=== PATIENT | male | born 1940 | race Caucasian/White ===

== ENCOUNTER 2018-05-20 08:38 | Observation (INO) | payer BC, MEDICARE ==
[2018-05-20] MEDS ORDERED: NORMAL SALINE 1,000 ML IV PRN (09:05)
[2018-05-20] MEDS ORDERED: ALPRAZolam 0.25 MG TABLET PO PRN (10:25)
[2018-05-20] MEDS ORDERED: oxyCODONE HCL/ACETAMINOPHEN 1 TAB TABLET PO PRN (10:25)
--- NOTE | 2018-05-20 11:08 | HP ---
Chief Complaint - Chief Complaint Date of Service: 05/20/18 Time of Service: 09:00 Chief Complaint: Lightheaded History of Present Illness: The patient presented to my office yesterday with complaints of lightheadedness that started less than 1 week ago. The patient has Crohn's disease and was recently found to have bacterial overgrowth and was started on Flagyl 250 mg by mouth twice a day with plans to treat for 14 days. The patient started treatment on 05/13/2018. The following morning, on 05/12/2018 , the patient states he started noticing a generalized feeling of being unwell with associated lightheadedness. He also admits to decreased appetite. The patient states that as long as he is laying in bed he has no symptoms whatsoever but with any activity at all even just going from the sitting to standing position he becomes extremely lightheaded and says that he has nearly passed out multiple times. The patient also admits to having associated shortness of breath that has progressively worsened along with a lightheadedness over the past week. The patient thought his symptoms were secondary to the Flagyl so he stopped taking the Flagyl on 05/16/2018, but his symptoms did not improve and he actually states that they continue to progressively worsen so he figured his symptoms were not due to the Flagyl. I saw the patient in my office yesterday 05/19/2018 and at that time his lungs were clear but his heart rhythm was markedly irregular. He was sent for laboratory testing and EKG and returned to my office this morning for follow- up. This morning, the patient states that he continues to feel miserable and severely lightheaded to the point that he is nearly passing out. I am concerned that the patient's symptoms are secondary to a cardiac etiology so I will admit the patient to outpatient observation for monitoring on telemetry. Medical History (Last Reviewed 05/20/18 @ 09:59 by Duong Craft RN) Alcohol abuse Onset Date: ~05/15/14 Anemia Onset Date: Unknown Anxiety Onset Date: ~07/10/11 BPH (benign prostatic hyperplasia) Onset Date: ~07/10/11 CKD (chronic kidney disease) Onset Date: Unknown COPD (chronic obstructive pulmonary disease) Onset Date: ~07/10/11 Cholelithiasis Onset Date: Unknown Chronic bilateral low back pain with sciatica Onset Date: ~03/15/17 Crohn's colitis Onset Date: ~03/15/17 Degenerative joint disease of left hip Onset Date: ~03/15/17 Depression Onset Date: Unknown Elbow pain Onset Date: Unknown Essential hypertension Onset Date: Unknown GERD (gastroesophageal reflux disease) Onset Date: ~07/10/11 Hypomagnesemia Onset Date: Unknown Inflammatory bowel disease Onset Date: Unknown Lactose intolerance Onset Date: Unknown BELA (obstructive sleep apnea) Onset Date: ~03/15/17 Osteoarthritis Onset Date: Unknown Pain due to internal orthopedic prosthetic device Onset Date: ~05/31/17 Peripheral neuropathy Onset Date: ~03/15/17 Primary osteoarthritis involving multiple joints Onset Date: ~03/15/17 Prostate cancer Onset Date: ~10/30/13 Psoriasis Onset Date: Unknown Vitamin B12 deficiency (dietary) anemia Onset Date: Unknown Echocardiogram abnormal Onset Date: ~11/03/13 Surgical History: Surgical History (Last Reviewed 05/20/18 @ 09:59 by Duong Craft RN) Colonoscopy planned Onset Date: ~2015 Esophageal dilatation Onset Date: ~02/07/14 H/O adenoidectomy Onset Date: ~1941 H/O cystoscopy Onset Date: ~2011 H/O hernia repair Onset Date: ~1998 H/O prostatectomy Onset Date: ~2002 H/O total hip arthroplasty Onset Date: ~08/11/16 History of bowel resection Onset Date: ~12/2015 History of cardiac cath Onset Date: ~05/29/08 History of cholecystectomy Onset Date: ~10/14/04 History of esophagogastroduodenoscopy (EGD) Onset Date: ~2013 History of penile implant Onset Date: ~2002 Hx of cataract surgery Onset Date: ~2006 S/P surgical manipulation of ankle joint Onset Date: ~09/18/99 Status post surgical removal of malignant neoplasm of skin Onset Date: ~ Tonsillectomy planned Onset Date: ~1941 Vasectomy planned Onset Date: ~1973 Family History: Family History (Last Reviewed 05/20/18 @ 09:59 by Duong Craft RN) Brother Diabetes Cancer Aortic valve replaced Father Hypertension Carotid atherosclerosis Mother Heart problem Diverticulitis Gall bladder disease Uncle No problems noted. Social History: Patient Lives/Resources Home Utilized Occupation Retired Preferred Language Turkmen Do you have any zoroastrianism or Yes: Sabianist cultural preference? Smoking Status Former smoker Have you smoked in the past 12 No months Do you dip or chew tobacco No Abuse History No History of abuse Psych History Hx of Anxiety Review Of Systems (GEN) - Review of Systems Generalized/Overall Review: Present: Weakness, Fatigue Respiratory: Present: Shortness of Breath Cardiac: Present: Syncope - pre-syncope. Absent: Chest Pain, Palpitations Musculoskeletal: Present: Joint Pain - chronic, Back Pain - chronic Misc: All systems neg except as marked Immunizations: IMMUNIZATION HX Immunizations Up to Date Yes History of Influenza Vaccine No Hx Pneumococcal Vaccination No Allergies/Adverse Reactions: Allergies Allergy/AdvReac Type Severity Reaction Status Date / Time azathioprine [From Imuran] AdvReac Mild Diarrhea Verified 05/20/18 09:31 azathioprine sodium AdvReac Mild Diarrhea Verified 05/20/18 09:31 [From Imuran] levofloxacin [From Levaquin] AdvReac Mild Diarrhea Verified 05/20/18 09:31 mesalamine [From Pentasa] AdvReac Mild Diarrhea Verified 05/20/18 09:31 adhesive tape AdvReac Unknown RASH Verified 05/20/18 09:31 rifaximin [From Xifaxan] AdvReac Unknown Diarrhea Verified 05/20/18 09:31 Home Medications: HOME MEDICATIONS Multivitamins [Multivitamin Jackie] 1 cap PO DAILY 08/03/16 [Last Taken Unknown] Vedolizumab [Entyvio] 300 mg IV Q56D 08/03/16 [Last Taken 03/31/18] Gabapentin 300 mg PO TID 08/11/16 [Last Taken Unknown] acetaminophen ER 650 mg tablet,extended release 650 mg PO BID tab 03/09/18 [ Last Taken Unknown] alprazolam 0.25 mg tablet 0.125 mg PO TID PRN tab 03/09/18 [Last Taken Unknown] aspirin 81 mg tablet,delayed release 81 mg PO DAILY 03/09/18 [Last Taken Unknown ] calcium carbonate-vitamin D3 600 mg (1,500 mg)-400 unit capsule 600 mg PO DAILY cap 03/09/18 [Last Taken Unknown] lactobacillus combination no.4 3 billion cell capsule 1 cap PO DAILY 03/09/18 [ Last Taken Unknown] omeprazole 40 mg capsule,delayed release 40 mg PO DAILY #30 cap 03/21/18 [Last Taken Unknown] lisinopril 20 mg tablet 20 mg PO DAILY #90 tab 03/28/18 [Last Taken Unknown] amlodipine 5 mg tablet 5 mg PO DAILY #90 tab 04/12/18 [Last Taken Unknown] Cholestyramine (with Sugar) [Questran Packet] 4 g PO BID 05/20/18 [Last Taken Unknown] Umeclidinium [place] [Incruse Ellipta] 62.5 mcg IH DAILY 05/20/18 [Last Taken Unknown] albuterol sulfate 2.5 mg/3 mL (0.083 %) solution for nebulization 2.5 mg IH BID ml 05/20/18 [Last Taken Unknown] bupropion HCl XL 300 mg 24 hr tablet, extended release 300 mg PO DAILY tab [Last Taken Unknown] iron,carbonyl 65 mg-vitamin C 125 mg tablet,delayed release 1 tab PO DAILY 05/20 [Last Taken Unknown] oxyCODONE HCL/ACETAMINOPHEN [Oxycodone-Acetaminophen 5-325] 1 tab PO Q4H PRN [Last Taken Unknown] oxybutynin chloride ER 10 mg tablet,extended release 24 hr 10 mg PO DAILY [Last Taken Unknown] Exam - Exam Vital Signs: Vital Signs - Last Taken Temp 37.2 C 05/20/18 09:48 Pulse 66 05/20/18 10:18 Resp 16 05/20/18 09:48 BP 158/79 H 05/20/18 09:48 Pulse Ox 98 05/20/18 09:48 Constitutional: Present: Alert, Oriented x3, Cooperative, Acute distress - Appears acutely ill and it looks like he does not feel well ENT Exam: Present: hearing grossly normal, moist mucous membranes Eye Exam: bilateral eye: normal inspection, PERRL, EOMI Respiratory: Present: lungs clear, normal breath sounds, no respiratory distress , no accessory muscle use, decreased breath sounds Cardiovascular/Chest: Present: other - Markedly irregular rhythm Abdomen: Present: soft, other - chronic distension Skin Exam: Present: normal color, warm/dry Neurologic: Present: no motor/sensory deficits, alert, normal mood/affect, oriented x 3 Appearance: Present: appropriate appearance, appropriate insight, neat, no memory impairment Eye contact: Present: cooperative, good eye contact, normal speech Thoughts: Present: normal thought pattern, no apparent hallucination Assessment/Plan - Narrative Narrative: I am concerned the patient's presentation is secondary to a cardiac etiology given his markedly abnormal heart rhythm. Work-up started yesterday as an outpatient is essentially unremarkable including CXR, cardiac enzymes, d-dimer. The patient will be admitted to outpatient observation status for further evaluation and monitor on telemetry. - Assessment/Plan (1) Irregular heart rhythm Problem: Acute (2) Pre-syncope Problem: Acute (3) Lightheadedness Problem: Acute
[2018-05-20] MEDS ORDERED: ONDANSETRON HCL/PF 2 MG/ML VIAL IV STA (12:29)
--- NOTE | 2018-05-20 12:30 | DS ---
Transfer Discharge Summary - Diagnosis(s)/Problems (1) Irregular heart rhythm Problem: Acute (2) Pre-syncope Problem: Acute (3) Lightheadedness Problem: Acute (4) Symptomatic bradycardia Problem: Acute - Course Description of Stay: ADMISSION DATE: 05/20/2018 TRANSFER DISCHARGE DATE: 05/20/2018 ADMISSION HPI: The patient presented to my office yesterday with complaints of lightheadedness that started less than 1 week ago. The patient has Crohn's disease and was recently found to have bacterial overgrowth and was started on Flagyl 250 mg by mouth twice a day with plans to treat for 14 days. The patient started treatment on 05/13/2018. The following morning, on 05/12/2018 , the patient states he started noticing a generalized feeling of being unwell with associated lightheadedness. He also admits to decreased appetite. The patient states that as long as he is laying in bed he has no symptoms whatsoever but with any activity at all even just going from the sitting to standing position he becomes extremely lightheaded and says that he has nearly passed out multiple times. The patient also admits to having associated shortness of breath that has progressively worsened along with a lightheadedness over the past week. The patient thought his symptoms were secondary to the Flagyl so he stopped taking the Flagyl on 05/16/2018, but his symptoms did not improve and he actually states that they continue to progressively worsen so he figured his symptoms were not due to the Flagyl. I saw the patient in my office yesterday 05/19/2018 and at that time his lungs were clear but his heart rhythm was markedly irregular. He was sent for laboratory testing and EKG and returned to my office this morning for follow- up. This morning, the patient states that he continues to feel miserable and severely lightheaded to the point that he is nearly passing out. I am concerned that the patient's symptoms are secondary to a cardiac etiology so I will admit the patient to outpatient observation for monitoring on telemetry. HOSPITAL COURSE: The patient was admitted to the hospital for lightheadedness and presyncope. The patient was monitored on telemetry and found to have an erratic labile heart rate and rhythm with multiple pauses and the patient was symptomatic. He also intermittently becomes bradycardic with a heart rate dropping into the low 40s. The patient's case was discussed with [facility] and the patient's telemetry strips were sent to them for review. [facility] stated that the patient would not be accepted for transfer as he needed to be evaluated by an liquor establishment manager. The case was then discussed with [facility] and the patient was accepted for transfer by Dr. Gillis with plans to consult EP cardiology for possible pacemaker placement. The patient was transferred in fair but stable condition via ambulance. Procedures Performed: none - Medications Medications: Active Medications Sodium Chloride (Sodium Chloride 0.9%) 1,000 mls @ 125 mls/hr IV .Q8H PRN PRN Reason: HYDRATION Stop: 06/19/18 09:06 Last Admin: 05/20/18 10:07 Dose: 125 mls/hr - Disposition Disposition: Short Term Hospital Inpatient Condition: Fair Discharge Date: 05/20/18 Discharge Time: 12:29
[2018-05-20] MEDS ORDERED: GABAPENTIN 300 MG CAPSULE PO SCH (13:00)
[2018-05-20 15:14] VITALS: BP 169/80
[2018-05-20] MEDS ORDERED: OXYBUTYNIN CHLORIDE 5 MG TABLET PO SCH (21:00)
[2018-05-20] MEDS ORDERED: CHOLESTYRAMINE/SUCROSE 4 GM PACKET PO SCH (21:00)
[2018-05-21] MEDS ORDERED: PANTOPRAZOLE SODIUM 40 MG TABLET.EC PO SCH (07:00)
[2018-05-21] MEDS ORDERED: ASPIRIN 81 MG TABLET.DR PO SCH (09:00)
[2018-05-21] MEDS ORDERED: amLODIPine BESYLATE 5 MG TABLET PO SCH (09:00)
[2018-05-21] MEDS ORDERED: LISINOPRIL 20 MG TABLET PO SCH (09:00)
[2018-05-21] MEDS ORDERED: buPROPion HCL 150 MG TAB.SR.24H PO SCH (09:00)
[2018-05-21] MEDS ORDERED: TIOTROPIUM BROMIDE 5 CAP INHALER IH SCH (09:00)
[2018-05-21] MEDS ORDERED: MULTIVITAMINS 1 CAP CAPSULE PO SCH (09:00)
== END 2018-05-20 15:04 | disposition short-term general hospital (02) ==
LOC: CCFAL → MS 08:38
PROVIDERS: ADMIT Internal Medicine; ATTEND Internal Medicine
CPT/HCPCS: 93005; 96361; 96374; G0378; G0379; J2405